=== PATIENT | female | born 1965 | race Caucasian/White ===

== ENCOUNTER 2018-05-25 10:00 | Emergency (ER) | payer OTHER, MEDICAID ==
[2018-05-25] MEDS: HYDROCODONE/APAP (5/325) TAB PO (10:13)
[2018-05-25] MEDS: ONDANSETRON (ODT) 4 MG TAB ODT (10:13)
== END 2018-05-25 10:38 | disposition home or self-care (01) ==
LOC: E/R 10:00
DX: K08.89 Other specified disorders of teeth and supporting structures (principal)
CPT/HCPCS: 99283; Z7502